=== PATIENT | male | born 1955 | race Caucasian/White ===

== ENCOUNTER → 2020-04-09 | Outpatient (CLI) | payer MEDICARE ==
[~2020-04-09] MED LIST: ASPI325T17 PO; ATOR20TA PO; CEPH-368 PO; LISI-170 PO; MELA10TA PO; METF500T17 PO; METH4TAB2 PO; METH750T87 PO; METO25TA35 PO; OXYC-302 PO; TAMS-11 PO
== END | disposition home or self-care (01) ==
LOC: STAR 12:45
PROVIDERS: ATTEND Anesthesiology
DX: Z01.812 Encounter for preprocedural laboratory examination (principal); Z20.828 Contact with and (suspected) exposure to other viral communicable diseases
CPT/HCPCS: 36415; 87635

== ENCOUNTER 2020-04-15 05:55 | Observation (INO) | payer MEDICARE ==
[~2020-04-15] VITALS: Ht 182.9 cm; Wt 109.1 kg
[2020-04-15] MEDS ORDERED: SODIUM CHLORIDE 0.9% 1,000 ML IV SCH (06:16)
[2020-04-15 06:20] VITALS: BP 152/85
[2020-04-15] MEDS ORDERED: Sotalol PO (06:39)
[2020-04-15] MEDS ORDERED: CHOL10003 PO (06:47)
[2020-04-15] MEDS ORDERED: VERA120T13 PO (06:47)
[2020-04-15] MEDS ORDERED: APIX5TAB PO (06:47)
[2020-04-15] MEDS ORDERED: ASPI-496 PO (06:47)
[2020-04-15] MEDS ORDERED: MULT-658 PO (06:47)
[2020-04-15] MEDS ORDERED: LIDOCAINE 2%, 20ML ONE (07:28)
[2020-04-15] MEDS ORDERED: SUCCINYLCHOLINE 20 MG/ML, 10ML ONE (07:50)
[2020-04-15] MEDS ORDERED: VASOPRESSIN 20 UNIT/ML, 1ML ONE (07:50)
[2020-04-15] MEDS ORDERED: ROCURONIUM 10 MG/ML,10ML ONE (07:50)
[2020-04-15] MEDS ORDERED: MIDAZOLAM 1 MG/ML, 2ML ONE (07:54)
[2020-04-15] MEDS ORDERED: FENTANYL PF 250 MCG/5ML ONE (07:54)
[2020-04-15] MEDS ORDERED: SOTA80TA PO (08:06)
[2020-04-15] MEDS ORDERED: APIXABAN 5 MG TABLET ONE (08:06)
[2020-04-15] MEDS ORDERED: DEXAMETHASONE 4 MG/ML, 1ML ONE (08:21)
[2020-04-15] MEDS ORDERED: GLYCOPYRROLATE 0.2MG/1ML, 5ML ONE (09:22)
[2020-04-15] MEDS ORDERED: EPHEDRINE 50 MG/ML, 1ML ONE (09:22)
[2020-04-15] MEDS ORDERED: HEPARIN 1,000 UNITS/ML, 10ML ONE ×3 (09:22→10:17)
[2020-04-15] MEDS ORDERED: PROPOFOL 10 MG/ML, 20ML ONE (09:22)
[2020-04-15] MEDS ORDERED: ACETAMINOPHEN 325 MG TABLET PO PRN (12:30)
[2020-04-15] MEDS: APIXABAN 5 MG TABLET PO SCH ×2 (13:09→20:17)
[2020-04-15 14:26] VITALS: BP 84/55
[2020-04-15] MEDS: COLCHICINE 0.6 MG CAPSULE PO SCH (20:17)
[2020-04-15] MEDS ORDERED: ATORVASTATIN 20 MG TABLET PO SCH (21:00)
[2020-04-15] MEDS ORDERED: APIXABAN 5 MG TABLET PO SCH (21:00)
[2020-04-16] MEDS: COLCHICINE 0.6 MG CAPSULE PO SCH ×2 (09:00→21:03)
[2020-04-16 09:04] LABS: BASOPHILS # (AUTO) 0.03 x10^3/uL (0-0.1); BASOPHILS % (AUTO) 0 % (0-1); EOSINOPHILS # (AUTO) 0.01 x10^3/uL (0-0.4); EOSINOPHILS % (AUTO) 0 % (1-7); LYMPHOCYTES # (AUTO) 1.33 x10^3/uL (1-3.4); LYMPHOCYTES % (AUTO) 13 % (22-44); MD NO; MEAN CORPUSCULAR HEMOGLOBIN 31.3 pg (27.5-34.5); MEAN CORPUSCULAR HGB CONC 31.8 g/dL (33.2-36.2); MEAN CORPUSCULAR VOLUME 98.7 fL (81-97); MEAN PLATELET VOLUME 9.2 fL (7.4-10.4); MONOCYTES # (AUTO) 0.95 x10^3/uL (0.2-0.8); MONOCYTES % (AUTO) 9 % (2-9); NEUTROPHILS # (AUTO) 7.87 x10^3/uL (1.8-6.8); NEUTROPHILS % (AUTO) 77 % (42-75); PLATELET COUNT 210 x10^3/uL (130-400); RED BLOOD COUNT 3.54 x10^6/uL (4.38-5.82); RED CELL DISTRIBUTION WIDTH 13.9 % (9.4-14.8)
[2020-04-16 09:13] LABS: ANION GAP 5 mmol/L (5-15); CALCIUM 8.6 mg/dL (8.5-10.1); CHLORIDE 107 mmol/L (98-107); CREATININE 1.06 mg/dL (0.7-1.3)
[2020-04-16] MEDS: APIXABAN 5 MG TABLET PO SCH ×2 (10:28→21:03)
[2020-04-16] MEDS: CHOLECALCIFEROL 5,000u TAB PO SCH (10:28)
[2020-04-16] MEDS: metFORMIN 500 MG TABLET PO SCH (10:28)
[2020-04-16] MEDS: ASPIRIN 81 MG TABLET EC PO SCH (10:28)
[2020-04-16] MEDS: LISINOPRIL 20 MG TABLET PO SCH (10:29)
[2020-04-16 15:07] VITALS: BP 102/56
[2020-04-16] MEDS ORDERED: ATORVASTATIN 40 MG TABLET PO SCH (21:00)
[2020-04-17 03:24] VITALS: BP 108/58
[2020-04-17 06:11] LABS: CREATININE 0.88 mg/dL (0.7-1.3)
[2020-04-17 06:50] VITALS: BP 135/82
[2020-04-17] MEDS: metFORMIN 500 MG TABLET PO SCH (08:58)
[2020-04-17] MEDS: ASPIRIN 81 MG TABLET EC PO SCH (08:58)
[2020-04-17] MEDS: CHOLECALCIFEROL 5,000u TAB PO SCH (08:59)
[2020-04-17] MEDS: COLCHICINE 0.6 MG CAPSULE PO SCH (08:59)
[2020-04-17] MEDS: LISINOPRIL 20 MG TABLET PO SCH (08:59)
[2020-04-17] MEDS: APIXABAN 5 MG TABLET PO SCH (08:59)
[2020-04-17] MEDS ORDERED: ACET325T26 PO (09:10)
[2020-04-17 14:03] VITALS: BP 163/85
== END 2020-04-17 17:05 | disposition home or self-care (01) ==
LOC: CACL 05:55 → ORIP 12:02 → CCU 12:55 → 5SO 04-16 13:02
PROVIDERS: ADMIT Internal Medicine Cardiovascular Disease; ATTEND Internal Medicine Cardiovascular Disease
DX: I48.91 Unspecified atrial fibrillation (principal); I48.92 Unspecified atrial flutter; I25.10 Atherosclerotic heart disease of native coronary artery without angina pectoris; I25.5 Ischemic cardiomyopathy; I10 Essential (primary) hypertension; E78.5 Hyperlipidemia, unspecified; E11.9 Type 2 diabetes mellitus without complications; E66.9 Obesity, unspecified; F17.200 Nicotine dependence, unspecified, uncomplicated; Z79.899 Other long term (current) drug therapy; Z79.01 Long term (current) use of anticoagulants; Z79.82 Long term (current) use of aspirin; Z79.84 Long term (current) use of oral hypoglycemic drugs
CPT/HCPCS: 33210; 36415; 71046; 80048; 82565; 85025; 85347; 87081; 93005; 93306; 93613; 93655; 93656; 93657; 93662; C1730; C1732; C1759; C1766; C1893; C1894; G0378; J0330; J1100; J1644; J2250; J2704; J3010; J3490